=== PATIENT | female | born 1950 | race Caucasian/White ===

== ENCOUNTER 2018-03-10 13:14 | Outpatient (CLI) | payer MEDICARE, BC | END 2018-03-10 13:15 | disposition home or self-care (01) | LOC: BICRAD 13:14 | PROVIDERS: ATTEND Internal Medicine | DX: M25.542 Pain in joints of left hand (principal); M25.541 Pain in joints of right hand; M19.041 Primary osteoarthritis, right hand; M25.649 Stiffness of unspecified hand, not elsewhere classified; M19.042 Primary osteoarthritis, left hand ==

== ENCOUNTER 2018-12-31 09:02 | Outpatient (CLI) | payer MEDICARE, BC ==
--- NOTE | 2018-12-31 09:48 | MMO ---
Bilateral MAMMO Bilat Screen [facility]. CLINICAL HISTORY: Patient is 68 years old and is seen for screening. The patient has no family history of breast cancer. The patient has no personal history of cancer. VIEWS: The views performed were: bilateral craniocaudal with tomosynthesis and bilateral mediolateral oblique with tomosynthesis. FILMS COMPARED: The present examination has been compared to prior imaging studies performed at 07/14/2014, 08/24/2015 and 02/27/2017. MAMMOGRAM FINDINGS: There are scattered fibroglandular densities. There are stable benign appearing calcifications seen in both breasts. There are no suspicious masses, suspicious calcifications, or new areas of architectural distortion. IMPRESSION: THERE IS NO MAMMOGRAPHIC EVIDENCE OF MALIGNANCY. A ROUTINE FOLLOW-UP MAMMOGRAM IN 1 YEAR IS RECOMMENDED. THE RESULTS OF THIS EXAM WERE SENT TO THE PATIENT. ACR BI-RADS Category 2 - Benign finding MAMMOGRAPHY NOTE: 1. A negative mammogram report should not delay a biopsy if a dominant of clinically suspicious mass is present. 2. Approximately 10% to 15% of breast cancers are not detected by mammography. 3. Adenosis and dense breasts may obscure an underlying neoplasm.
--- NOTE | 2018-12-31 09:59 | BD ---
DEXA BONE DENSITY STUDY: HISTORY: Postmenopausal FINDINGS: Lumbar Spine: BMD (g/cm2) L1 1.220 T-Score: 2.1 L2 1.399 T-Score: 3.4 L3 1.577 T-Score: 4.5 L4 1.421 T-Score: 3.3 Total 1.401 T-Score: 3.2 Findings within normal limits with no increased risk for fracture. Bone mineral density has increased minimally from prior 08/24/2015 study Left Hip: Femoral Neck: 0.915 T-Score: 0.6 Total Femur: 1.156 T-Score: 1.8 Findings within normal limits with no increased risk for fracture. Bone mineral density has increased minimally from prior study. FRAX score not reported because all T-scores at or above -1.0 Transcribed Date/Time: 12/31/2018 11:13 AM
== END 2018-12-31 09:03 | disposition home or self-care (01) ==
LOC: BICMAMMO 09:02
PROVIDERS: ATTEND Internal Medicine
DX: Z12.31 Encounter for screening mammogram for malignant neoplasm of breast (principal); M85.89 Other specified disorders of bone density and structure, multiple sites
CPT/HCPCS: 77063; 77067; 77080

== ENCOUNTER 2019-03-09 10:48 | Outpatient (CLI) | payer MEDICARE, BC ==
--- NOTE | 2019-03-09 13:02 | RAD ---
LUMBAR SPINE SERIES 2 VIEWS: Date: 03/09/19 HISTORY: Back pain. Left leg radicular symptoms. FINDINGS: Vertebral bodies are normal in height. Degenerative change with marked disc narrowing is seen at L2-3 and L5-S1. Moderately severe disc narrowing also seen at L3-4 and L4-5. Scoliosis minimally convex t o the right. Pedicles are intact. Vascular calcifications are present. Postoperative changes with geraldo gical clips in the mid and left upper quadrant are noted. IMPRESSION: Marked arthritic changes of the spine. POS: C
--- NOTE | 2019-03-09 13:03 | RAD ---
LEFT HIP 3 VIEWS: Date: 03/09/19 HISTORY: Left hip pain. FINDINGS: There is fairly marked superior joint space narrowing. There is also osteophytic change along the fem oral head/neck junction and acetabulum. IMPRESSION: Moderate arthritic changes of the left hip. POS: C
== END 2019-03-09 10:49 | disposition home or self-care (01) ==
LOC: BICRAD 10:48
PROVIDERS: ATTEND Internal Medicine
DX: M25.552 Pain in left hip (principal); M54.9 Dorsalgia, unspecified; M16.12 Unilateral primary osteoarthritis, left hip; M46.96 Unspecified inflammatory spondylopathy, lumbar region
CPT/HCPCS: 72100

== ENCOUNTER 2019-04-09 13:15 | Inpatient (IN) | payer MEDICARE, BC ==
--- NOTE | 2019-04-16 09:12 | HP ---
HISTORY OF PRESENT ILLNESS: The patient is a 68-year-old female, who has several month history of progressive pain in the left hip, which is worse with ambulation and pain has become progressively worse with ambulation and getting in and out of a car. The pain is now interfering with day-to-day activities and sleeping. She did note relief with use of ibuprofen. 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 She also takes care of her son, who had a traumatic brain injury at age 16. She is otherwise in good health. She has history of thyroid replacement and hypertension. She is followed by Dr. Savanna Ugarte. On preoperative laboratory study, she was found to have a urinary tract infection with E coli and this has been treated with Bactrim. MEDICATIONS: Her current medications include, 1. Sertraline. 2. Low-dose aspirin. 3. Levothyroxine. ALLERGIES: SHE IS ALLERGIC TO PENICILLIN. FAMILY HISTORY: Otherwise unremarkable. SOCIAL HISTORY: Otherwise unremarkable. REVIEW OF SYSTEMS: Otherwise unremarkable. PHYSICAL EXAMINATION: GENERAL: Reveals a healthy female. HEENT: Unremarkable. NECK: Supple. CHEST: Clear. HEART: Regular rate and rhythm. ABDOMEN: Soft, nontender. PELVIC: Deferred. RECTAL: Deferred. BREAST: Deferred. EXTREMITIES: Pertinent findings with the left lower extremity. Leg lengths are equal. There is tenderness of the greater trochanter and left anterior hip. There is pain with range of motion of the left hip and groin pain with internal rotation. This reproduces her symptoms. NEUROVASCULAR: Intact. There is no instability. Straight leg raising is negative. DIAGNOSTIC STUDIES: X-rays of the left hip reveal moderately severe degenerative joint disease of the left hip with minimal joint space remaining. IMPRESSION: 1. Degenerative arthritis, left hip. 2. Preoperative urinary tract infection from Escherichia coli, treated with Bactrim. PLAN: Left total hip replacement. The nature of the surgery, length, recovery, and potential complications such as infection, loss of motion, incomplete relief, neurovascular injury, thromboembolic phenomena, leg-length discrepancy, possible transfusion, need for revision have been discussed in detail. Job ID: [id number]
[2019-04-20] MEDS ORDERED: Sodium Chloride 0.9% 100 ML ONE (06:55)
[2019-04-20] MEDS ORDERED: Levofloxacin 500 mg/D5W 100 ml Premix Bag ONE (06:55)
[2019-04-20] MEDS ORDERED: Tranexamic Acid 1,000 MG/10 ML VIAL ONE ×2 (06:55→12:11)
[2019-04-20] MEDS ORDERED: Vancomycin HCl 1.5 GM in Sodium Chloride 0.9% 250 ML 300 ML IVPB SCH ×2 (07:00→21:00)
[2019-04-20] MEDS ORDERED: Acetaminophen 500 MG TAB PO PRN (07:53)
[2019-04-20] MEDS ORDERED: Bupivacaine 0.25% 10 ML VIAL EPIDURAL PRN (08:00)
[2019-04-20] MEDS ORDERED: Ondansetron PF 4 MG/2 ML Vial IVP PRN ×2 (08:00→13:44)
[2019-04-20] MEDS ORDERED: Naloxone HCl 0.4 mg/ml Vial IVP PRN (08:00)
[2019-04-20] MEDS ORDERED: Zolpidem Tartrate 5 MG TAB PO PRN ×2 (08:00→13:44)
[2019-04-20] MEDS ORDERED: Promethazine HCl 25 MG SUPP PR PRN (08:00)
[2019-04-20] MEDS ORDERED: diphenhydrAMINE 50 MG/ML VIAL IM PRN (08:00)
[2019-04-20] MEDS ORDERED: traMADol HCl 50 MG TAB PO PRN ×3 (08:00→13:44)
[2019-04-20] MEDS ORDERED: Promethazine HCl 25 MG/ML VIAL IM PRN ×2 (08:00→11:49)
[2019-04-20] MEDS ORDERED: diphenhydrAMINE 50 MG/ML VIAL IVP PRN (08:00)
[2019-04-20] MEDS ORDERED: Hydrocerin (Eucerin) Cream 120 gm Jar TOP PRN (08:00)
[2019-04-20] MEDS ORDERED: Naloxone HCl 0.4 mg/ml Vial IV PRN (08:00)
[2019-04-20] MEDS ORDERED: diphenhydrAMINE 25 MG CAP PO PRN ×2 (08:00→13:44)
[2019-04-20] MEDS ORDERED: HYDROcodone/Acetaminophen 5/325 mg Tablet PO PRN ×2 (08:00)
[2019-04-20] MEDS ORDERED: Midazolam HCl 2 mg/2 ml Vial ONE (08:04)
[2019-04-20] MEDS ORDERED: Fentanyl 100 MCG/2 ML VIAL ONE (09:19)
[2019-04-20] MEDS ORDERED: Bupivacaine/Epinephrine 0.25% 30 ML VIAL ONE (09:19)
[2019-04-20] MEDS ORDERED: Tranexamic Acid 1,000 MG in Sodium Chloride 0.9% 100 ML IVPB SCH ×2 (11:45→13:44)
[2019-04-20] MEDS ORDERED: PACU-Morphine 4MG/ML VIAL SLOW IVP PRN (11:49)
[2019-04-20] MEDS ORDERED: Ondansetron HCl/PF 4 MG/2 ML Vial IVP PRN (11:49)
[2019-04-20] MEDS ORDERED: Promethazine HCl 25 MG/ML VIAL SLOW IVP PRN ×2 (11:49→13:44)
[2019-04-20] MEDS ORDERED: HYDROmorphone 2 MG/ML VIAL SLOW IVP PRN (11:49)
--- NOTE | 2019-04-20 12:14 | OP ---
DATE OF PROCEDURE: 04/20/2019 HAMMERER TAB: Amanda Nicole PA-C ANESTHESIA: General plus epidural. PREOPERATIVE DIAGNOSIS: Degenerative arthritis, left hip. POSTOPERATIVE DIAGNOSIS: Degenerative arthritis, left hip. PROCEDURE PERFORMED: Left total hip replacement with uncemented Dresher Tritanium acetabular component 56 mm with X3 polyethylene insert and uncemented Melisa Accolade II femoral stem #4 with 132-degree neck angle and 36-mm standard length metal head. DESCRIPTION OF PROCEDURE: After satisfactory anesthesia was induced in the supine position, the patient was placed in the lateral decubitus position and this position held with a hip positioning device. Sequential compression device was used on the nonoperative leg throughout the procedure. The patient's left hip and leg were then prepped in the routine sterile fashion. The hip was approached through a lateral curvilinear incision centered over the greater trochanter, carried down through the subcutaneous tissues. Bleeding points were controlled with Bovie cautery. The IT band and gluteal fascia were split in line of the skin incision. A direct lateral approach to the hip joint was developed by dividing the anterior third of the gluteus medius and minimus tendons with the Bovie cautery and reflecting this as a single flap anteriorly and medially along with the vastus lateralis. Anterior capsulectomy was performed and the hip was dislocated anteriorly. There was marked degenerative arthritis of the hip, much more pronounced than was present on x-ray. The femoral neck was osteotomized with an oscillating saw using a trial prosthesis as a guide. The acetabulum was exposed and cleaned of all soft tissue and debris. It was then reamed in sequence to a total of 55 mm. It was felt that a 56 mm Tritanium outer shell could to be placed in a press-fit fashion. The permanent component was then hammered in position. There was good fit and stability of the outer shell and then x-ray polyethylene liner was snapped in position. The proximal femur was then exposed and opened with a box osteotome and rasped in sequence to accept a #4 Accolade II femoral rasp. Trial reduction with 132-degree neck angle trunnion and a standard neck length 36 mm head gave appropriate size, fit, and stability. The hip was again dislocated anteriorly and the trial components were removed. The permanent #4 femoral component was then hammered in position. There was good fit and stability of the component. The permanent 36-mm metal femoral head was then placed on the trunnion and the hip again reduced and found to be stable. Wound was copiously irrigated with pulsatile lavage. The abductors were then repaired with interrupted #2 Vicryl. The IT band and gluteal fascia was closed with interrupted #2 Vicryl and a running #2 Quill. Subcutaneous tissues were closed with interrupted #2 Vicryl and a running 0 Quill suture. The skin was closed with a running subcuticular 3-0 Monoderm and SurgiSeal skin adhesive. Sterile dressing was applied. The patient turned to supine position and a pillow placed in her legs. Sequential compression device was then applied to the left leg and she was awakened, taken to recovery in stable condition. There were no apparent intraoperative complications. The estimated blood loss was 250 mL. Job ID: [id number]
--- NOTE | 2019-04-20 12:40 | RAD ---
2 views left hip: 04/20/2019 COMPARISON: 03/09/2019 HISTORY: Evaluate hip following arthroplasty FINDINGS: There has been interval placement of a total hip arthroplasty on the left. There is postope rative gas adjacent to the proximal left femur. No acute fracture or dislocation. No evidence for hardware failure. IMPRESSION: Status post left total hip arthroplasty.
[2019-04-20] MEDS ORDERED: Fentanyl 100 MCG/2 ML VIAL SLOW IVP PRN ×2 (13:44)
[2019-04-20] MEDS ORDERED: Acetaminophen 325 MG TAB PO PRN (13:44)
[2019-04-20] MEDS ORDERED: HYDROcodone/Acetaminophen 10/325 mg Tablet PO PRN ×2 (13:44)
[2019-04-20] MEDS ORDERED: Ketorolac Tromethamine 30 MG/ML VIAL IVP SCH (14:00)
[2019-04-20] MEDS ORDERED: Aspirin 81 mg Enteric Coated Tablet PO SCH (14:15)
[2019-04-20] MEDS ORDERED: Levothyroxine Sodium 100 MCG TAB PO SCH (14:15)
[2019-04-20] MEDS ORDERED: Lisinopril/Hydrochlorothiazide 10 mg/12.5 mg Tablet PO SCH (14:30)
[2019-04-20] MEDS: Ketorolac Tromethamine 30 MG/ML VIAL IVP SCH ×2 (15:34→17:56)
[2019-04-20] MEDS: Sodium Chloride 0.9% 1,000 ML IV SCH (15:42)
[2019-04-20 19:58] VITALS: BMI 29.8
[2019-04-20] MEDS: Aspirin 81 mg Enteric Coated Tablet PO SCH (22:18)
[2019-04-20] MEDS: diphenhydrAMINE 50 MG CAP PO SCH (22:18)
[2019-04-20] MEDS: Atorvastatin Calcium 10 MG TAB PO SCH (22:19)
[2019-04-21] MEDS: Ketorolac Tromethamine 30 MG/ML VIAL IVP SCH ×5 (00:52→23:15)
[2019-04-21] MEDS: Sodium Chloride 0.9% 1,000 ML IV SCH ×2 (02:31→12:42)
[2019-04-21 05:45] LABS: Hemoglobin 10.6 g/dL (12.0-16.0); Mean Corpuscular HGB CONC 34.3 g/dL (32.0-36.0); Mean Corpuscular Hemoglobin 32.6 pg (27.0-31.0); Mean Platelet Volume 6.4 fL (7.4-10.4); Platelet Count 257 thou/uL (130-400); Red Blood Cell (RBC) Count 3.24 mill/uL (4.20-5.40); White Blood Cell (WBC) Count 6.9 thou/uL (4.8-10.8)
--- NOTE | 2019-04-21 06:12 | PDOC.HOSPP ---
- Subjective Encounter Date: 04/20/19 Encounter Time: 16:00 Subjective: pt up in bed no complains but drops her bp and gets dizzy when she gets up. - Objective Vital Signs & Weight: Vital Signs (12 hours) Temp Pulse Resp BP Pulse Ox 04/21/19 04:00 98 F 98 16 114/66 97 04/21/19 00:00 98.3 F 94 18 125/73 97 04/20/19 20:00 98.3 F 80 18 131/72 98 Weight Weight 185 lb I&O: 04/19/19 04/20/19 04/21/19 06:59 06:59 06:59 Intake Total 1950 Output Total 1300 Balance 650 Result Diagrams: 04/21/19 04:54 ROS - Review of Systems Cardiovascular: reports: light headedness Gastrointestinal: denies: nausea, vomitting, abdominal pain, diarrhea, constipation, melena, hematochezia, other Genitourinary: denies: dysuria, frequency, incontinence, hematuria, retention, other - Medication Medications: Active Medications Generic Name Dose Route Start Last Admin Trade Name Brunoq PRN Reason Stop Dose Admin Aspirin 81 mg 04/20/19 21:00 04/20/19 22:18 Ecotrin PO 81 mg BID NELL Administration Atorvastatin Calcium 10 mg 04/20/19 21:00 04/20/19 22:19 Lipitor PO 10 mg HS NELL Administration Diphenhydramine HCl 50 mg 04/20/19 21:00 04/20/19 22:18 Benadryl PO 50 mg HS NELL Administration Sodium Chloride 1,000 mls @ 100 mls/hr 04/20/19 13:44 04/21/19 02:31 Normal Saline 0.9% IV Not Given .Q10H NELL Ketorolac Tromethamine 15 mg 04/20/19 12:00 04/21/19 00:52 Toradol IVP 04/22/19 06:01 15 mg Q6HR NELL Administration - Exam ENT: negative: normocephalic atraumatic, no oropharyngeal lesions, moist mucosa , dry oral mucosa Neck: negative: supple, symmetric, no JVD, no thyromegaly, no lymphadenopathy, no carotid bruit, JVD Heart: negative: RRR, no murmur, no gallops, no rubs, normal peripheral pulses, irregular, diminshed peripheral pulses, murmur present, II/IV, III/IV Hosp A/P (1) HTN (hypertension) Code(s): I10 - ESSENTIAL (PRIMARY) HYPERTENSION Status: Acute (2) Status post left hip replacement Code(s): Z96.642 - PRESENCE OF LEFT ARTIFICIAL HIP JOINT Status: Acute - Plan will put holding parameters to her bp meds. DVT ppx and pain per ortho. continue iv fluids for now. minimal blood loss in surgery.
[2019-04-21] MEDS: Levothyroxine Sodium 100 MCG TAB PO SCH (06:18)
[2019-04-21] MEDS: fentaNYL Citrate/PF 500 MCG, Bupivacaine 10 ML in Sodium Chloride 0.9% 80 ML EPIDURAL SCH ×2 (06:34→23:45)
[2019-04-21] MEDS: Lisinopril/Hydrochlorothiazide 10 mg/12.5 mg Tablet PO SCH (08:45)
[2019-04-21] MEDS: Ferrous Gluconate 324 MG TAB PO SCH ×2 (08:45→16:58)
[2019-04-21] MEDS: Aspirin 81 mg Enteric Coated Tablet PO SCH ×2 (08:46→20:23)
[2019-04-21] MEDS: Senokot S 8.6-50 MG TAB PO SCH ×2 (08:46→20:24)
[2019-04-21] MEDS: Multivitamin W/ Minerals 1 TAB PO SCH (08:47)
[2019-04-21] MEDS ORDERED: Prevnar 13-Val Conj/PF 0.5 ML SYRINGE IM ONE (09:00)
[2019-04-21] MEDS ORDERED: Lisinopril/Hydrochlorothiazide 10 mg/12.5 mg Tablet PO SCH (09:00)
--- NOTE | 2019-04-21 14:14 | PDOC.HOSPP ---
- Subjective Encounter Date: 04/21/19 Encounter Time: 14:10 Subjective: no dizziness, chest pain, nausea, etc - Objective Vital Signs & Weight: Vital Signs (12 hours) Temp Pulse Resp BP BP Pulse Ox 04/21/19 11:07 98.0 F 83 18 142/82 H 94 L 04/21/19 08:45 99 104/66 04/21/19 08:00 99 04/21/19 07:58 98 04/21/19 07:23 97.1 F L 99 15 104/66 98 04/21/19 04:00 98 F 98 16 114/66 97 Weight Admit Weight 185 lb Weight 185 lb I&O: 04/20/19 04/21/19 04/22/19 06:59 06:59 06:59 Intake Total 1950 Output Total 1300 Balance 650 Result Diagrams: 04/21/19 04:54 ROS - Medication Medications: Active Medications Generic Name Dose Route Start Last Admin Trade Name Freq PRN Reason Stop Dose Admin Aspirin 81 mg 04/20/19 21:00 04/21/19 08:46 Ecotrin PO 81 mg BID NELL Administration Atorvastatin Calcium 10 mg 04/20/19 21:00 04/20/19 22:19 Lipitor PO 10 mg HS NELL Administration Cholecalciferol 1,000 units 04/21/19 09:00 04/21/19 08:46 Vitamin D3 PO 1,000 units DAILY NELL Administration Diphenhydramine HCl 50 mg 04/20/19 21:00 04/20/19 22:18 Benadryl PO 50 mg HS NELL Administration Ferrous Gluconate 324 mg 04/21/19 08:00 04/21/19 08:45 Fergon PO 324 mg BID-WM NELL Administration Lisinopril/HCTZ 1 tab 04/21/19 09:00 04/21/19 08:45 Prinizide 10-12.5 PO Not Given DAILY NELL Fentanyl Citrate 500 mcg/ 100 mls @ 6 mls/hr 04/20/19 08:00 04/21/19 06:34 Bupivacaine HCl 10 ml/ Sodium EPIDURAL 100 mls Chloride INF NELL Administration Sodium Chloride 1,000 mls @ 100 mls/hr 04/20/19 13:44 04/21/19 12:42 Normal Saline 0.9% IV Not Given .Q10H NELL Iron/Minerals/Multivitamins 1 tab 04/21/19 09:00 04/21/19 08:47 Theragran M PO 1 tab DAILY NELL Administration Ketorolac Tromethamine 15 mg 04/20/19 12:00 04/21/19 12:51 Toradol IVP 04/22/19 06:01 15 mg Q6HR NELL Administration Levothyroxine Sodium 100 mcg 04/21/19 06:00 04/21/19 06:18 Synthroid PO 100 mcg 0600 NELL Administration Senna/Docusate Sodium 2 tab 04/21/19 09:00 04/21/19 08:46 Senokot S PO 2 tab BID NELL Administration Sertraline HCl 50 mg 04/21/19 09:00 04/21/19 08:46 Zoloft PO 50 mg DAILY NELL Administration - Exam awake alert Neck: no JVD Heart: RRR, no murmur Respiratory: CTAB Gastrointestinal: soft, normal bowel sounds Extremities: no edema Hosp A/P (1) Hypothyroid Code(s): E03.9 - HYPOTHYROIDISM, UNSPECIFIED Status: Chronic Qualifiers: Hypothyroidism type: unspecified Qualified Code(s): E03.9 - Hypothyroidism , unspecified (2) Degenerative arthritis of hip Code(s): M16.9 - OSTEOARTHRITIS OF HIP, UNSPECIFIED Status: Acute Qualifiers: Osteoarthritis type: unspecified Laterality: left Qualified Code(s): M16.12 - Unilateral primary osteoarthritis, left hip (3) Depression Code(s): F32.9 - MAJOR DEPRESSIVE DISORDER, SINGLE EPISODE, UNSPECIFIED Status : Acute Qualifiers: Depression Type: unspecified Qualified Code(s): F32.9 - Major depressive disorder, single episode, unspecified - Plan douing well cont home meds, PT/OT
--- NOTE | 2019-04-21 14:30 | PRG ---
DATE OF SERVICE: 04/21/2019 SUBJECTIVE: Merline is a 68-year-old female, who is postop day 1 from a left total hip arthroplasty. She has no complaints. She is quite comfortable. OBJECTIVE: VITAL SIGNS: Temperature 98.0, pulse rate 83, respiratory rate 18 and nonlabored, and blood pressure 142/82. GENERAL: She is alert and oriented to person, place, time, and situation. Nonfocal. Responsive and appropriate with examiner. EXTREMITIES: Her incision is clean and closed. Leg lengths appear near symmetric. There is no shortening or external rotation. LABORATORY DATA: Hemoglobin and hematocrit are 10.6 and 30.8. IMPRESSION: A 68-year-old female, postop day 1 from left total hip arthroplasty, doing well. PLAN: Continue current care. Discharge home tomorrow. Job ID: [id number]
[2019-04-21] MEDS: Atorvastatin Calcium 10 MG TAB PO SCH (20:23)
[2019-04-21] MEDS: diphenhydrAMINE 50 MG CAP PO SCH (20:23)
[2019-04-22] MEDS: Sodium Chloride 0.9% 1,000 ML IV SCH ×2 (02:31→07:50)
[2019-04-22] MEDS: Levothyroxine Sodium 100 MCG TAB PO SCH (05:17)
[2019-04-22] MEDS: Ketorolac Tromethamine 30 MG/ML VIAL IVP SCH (05:17)
[2019-04-22] MEDS: Ferrous Gluconate 324 MG TAB PO SCH (08:23)
[2019-04-22] MEDS: Multivitamin W/ Minerals 1 TAB PO SCH (08:23)
[2019-04-22] MEDS: Aspirin 81 mg Enteric Coated Tablet PO SCH (08:23)
[2019-04-22] MEDS: Lisinopril/Hydrochlorothiazide 10 mg/12.5 mg Tablet PO SCH (08:26)
[2019-04-22] MEDS: Senokot S 8.6-50 MG TAB PO SCH (08:27)
[2019-04-22] MEDS ORDERED: HYDROcodone/Acetaminophen 10/325 mg Tablet PO PRN ×2 (08:36)
[2019-04-22 11:43] VITALS: BP 127/69; TEMP 97.8
--- NOTE | 2019-04-22 15:28 | DIS ---
DATE OF ADMISSION: 04/20/2019 DATE OF DISCHARGE: 04/22/2019 PRIMARY CARE PROVIDER: Savanna Ugarte MD DISPOSITION: Discharged home. FINAL DIAGNOSES: Left total hip replacement, hypertension, degenerative arthritis of the hip, depression, hypothyroidism. DISCHARGE MEDICATIONS: 1. Aspirin 81 mg a day. 2. [place] 10/325 one or two tablets q.6 hours for pain. 3. Synthroid 100 mcg a day. 4. Zoloft 50 mg a day. 5. Lipitor 10 mg a day. 6. Lisinopril/hydrochlorothiazide 10/12.5 daily. 7. Meloxicam 15 mg a day. DIET: Heart healthy. PENDING AT TIME OF DISCHARGE: Nothing. CODE STATUS: Full. HOSPITAL COURSE: The patient was placed in the hospital by Dr. Christiano Almeida. She underwent left total hip replacement on 04/20/2019. Hospitalist Service was consulted for medical management. The patient did well during her hospital stay. She was discharged by Dr. Almeida with outpatient physical therapy on 04/24/2019 at [address] Christiano Almeida on 05/05/2019 at 1:30 p.m. Job ID: [id number]
== END 2019-04-22 13:52 | disposition home or self-care (01) | DRG 470 ==
LOC: SJJU 04-20 06:37
PROVIDERS: ADMIT Orthopaedic Surgery; ATTEND Orthopaedic Surgery
PROC: 0SRB02A Replacement of Left Hip Joint with Metal on Polyethylene Synthetic Substitute, Uncemented, Open Approach (ICD-10-PCS; principal; 2019-04-20)
DX: M16.12 Unilateral primary osteoarthritis, left hip (principal); N39.0 Urinary tract infection, site not specified; I10 Essential (primary) hypertension; F32.9 Major depressive disorder, single episode, unspecified; E03.9 Hypothyroidism, unspecified; B96.20 Unspecified Escherichia coli [E. coli] as the cause of diseases classified elsewhere; Z79.82 Long term (current) use of aspirin; Z79.899 Other long term (current) drug therapy
CPT/HCPCS: 36415; 85027; 90471; 90670; C1776; G0009; J1885; J1956; J2250; J3010; J3370; J3490; J7050; Q0163